=== PATIENT | female | born 1970 | race African-American/Black ===

== ENCOUNTER 2016-09-03 19:33 | Emergency (ER) | payer OTHER ==
--- NOTE | ~2016-09-03 | CR72 ---
[facility] A Service of [facility] & [facility] RADIOLOGY TEXT RESULTS PATIENT: LINDSAY BOOGIE LOCATION: [facility] : 66 UNIT #: [id number] AGE: [address]: Leighton Deleon DO SEX: F ORDER DR: [id number] [facility] [address] [place], [place] [address] [id number] E MR#: [id number] Acc #: [id number] NAME: LINDSAY BOOGIE. : 1970 SEX: F STUDY DATE/TIME: 09/03/2016 21:00 UNIT: [facility] ROOM: STUDY DESCRIPTION: CR Chest Single View Portable Attending Physician: Leighton Deleon D.O. Ordering Physician: Leighton Deleon D.O. Primary Care Physician: Primary Care Physician No MEDICAL IMAGING REPORT This report is preliminary unless electronic signature is present EXAM Portable chest HISTORY Chest pain, shortness of air and congestion today. FINDINGS The cardiac size and pulmonary vascularity are normal. No infiltrates or effusions. Mild elevation of the left hemidiaphragm. Small, calcified granuloma in the left base. IMPRESSION No acute findings. Dictated by... Venkat Fierro M.D. THIS IS AN ELECTRONICALLY VERIFIED REPORT Venkta Fierro M.D. at 09/04/2016 11:25 PM DFL/psc TD: 09/03/2016 23:28 JOB #: [id number] MEDICAL IMAGING REPORT Page 1 of 1 COPY
--- NOTE | ~2016-09-03 | EKG ---
PATIENT: LINDSAY BOOGIE UNIT #: [id number] Ventricular Rate: 87 BPM Atrial Rate: 87 BPM P-R Interval: 134 ms QRS Duration: 80 ms Q-T Interval: 374 ms QTC Calculation(Bezet): 450 ms P [place]: 50 degrees Calculated R [place]: 4 degrees Calculated T [place]: 7 degrees Diagnosis Line: Normal sinus rhythm Diagnosis Line: Moderate voltage criteria for LVH, may be normal Diagnosis Line: variant Diagnosis Line: Borderline ECG Diagnosis Line: No previous ECGs available Diagnosis Line: Confirmed by RANI BONNER MD ([id number]) on Diagnosis Line: 09/04/2016 8:02:21 AM INTERPRETING MD: KAILEY ESTEVEZ
[~2016-09-03 19:33] MED LIST: BIOTIN300 MCG; CHROMIUM PICO200 MC2; CIPRO PO; [UNRECOGNIZED DRUG - OTHER]
[2016-09-03 20:17] LABS: BASOPHIL# 0.1 X10e3 (0-0.3); BASOPHIL% 0.9 % (0-2.5); EOSINOPHIL# 0.3 X10e3 (0-0.7); HEMATOCRIT 43.2 % (35.0-45.0); LYMPHOCYTE# 2.2 X10e3 (1.0-3.5); LYMPHOCYTE% 32.7 % (17.0-45.0); MEAN CELL VOLUME 91.4 FL (83-96); MEAN CORPUSCULAR HEMOGLOBIN 29.7 PG (28-34); MEAN CORPUSCULAR HGB CONC 32.5 g/dL (30-36); MEAN PLATELET VOLUME 8.7 FL (6.5-11.5); MONOCYTE# 0.6 X10e3 (0-1.0); NEUTROPHIL# 3.6 X10e3 (1.5-7.1); NEUTROPHIL% 53.4 % (40-75); PLATELET COUNT 221 X10e3 (140-420); RED BLOOD COUNT 4.72 X10e (3.90-5.30); RED CELL DISTRIBUTION WIDTH 14.5 % (11.0-15.5); WHITE BLOOD COUNT 6.7 X10e3 (4.0-10.5)
[2016-09-03 20:19] LABS: DIFF IND NO
[2016-09-03 20:27] LABS: POC - CKMB 2.8 ng/mL (0.0-7.9); POC - TROPONIN <0.05 ng/mL (<=0.05)
[2016-09-03 20:34] LABS: ALBUMIN SERUM 3.7 g/dL (3.5-5.0); BILIRUBIN, DIRECT 0.1 mg/dL (0.0-0.2); BILIRUBIN,INDIRECT 0.5 mg/dL (0.0-0.9); BILIRUBIN,TOTAL 0.6 mg/dL (0.2-2.0); BUN/CREATININE RATIO 16.36; CALCIUM SERUM 9.1 mg/dL (8.4-10.2); CREATININE SERUM 1.1 mg/dL (0.6-1.4); GLOM FILT RATE Estimated 68.8 mL/min (>60); POTASSIUM 3.4 mmol/L (3.5-5.1); PROTEIN TOTAL SERUM 7.3 g/dL (6.0-8.3)
[2016-09-03 21:26] LABS: PARTIAL THROMBOPLASTIN TIME 27.8 SECONDS (23.5-31.3); PROTHROMBIN TIME (PATIENT) 11.2 SECONDS (10.0-11.7)
[2016-09-03 22:02] LABS: POC - TROPONIN <0.05 ng/mL (<=0.05)
== END 2016-09-03 22:20 | disposition home or self-care (01) ==
LOC: CED 19:33
PROVIDERS: Emergency Medicine
DX: J40 Bronchitis, not specified as acute or chronic (principal); E78.5 Hyperlipidemia, unspecified; K21.9 Gastro-esophageal reflux disease without esophagitis
CPT/HCPCS: 71010; 80048; 80076; 82553; 84484; 85025; 85379; 85610; 85730; 93005; 96374; 99285; J1885